=== PATIENT | male | born 1975 | race Hispanic/Latino ===

== ENCOUNTER 2020-04-13 11:43 | Emergency (ER) | payer OTHER, MEDICAID, SELFPAY ==
[2020-04-13 12:04] VITALS: BP 143/91; PULSE 84; RESP 11; TEMP 37.3; O2SAT 98; BMI 23.7
[2020-04-13 12:17] LABS: Add Manual Diff / Slide Review NO; Basophils Absolute Auto 0 /uL (0-100); Basophils Percent Auto 0.8 % (0-2); Eosinophils Absolute Auto 200 /uL (0-450); Hematocrit 42.1 % (41-53); Hemoglobin 14.6 g/dL (13.5-17.5); Lymphocytes Absolute Auto 1500 /uL (1100-4500); Lymphocytes Percent Auto 25.3 % (25-40); Mean Corpuscular HGB Conc 34.6 % (30-36); Mean Corpuscular Hemoglobin 31.2 PG (26-34); Monocytes Absolute Auto 600 /uL (0-900); Monocytes Percent Auto 9.2 % (3-14); Neutrophils Absolute Auto 3800 /uL (1500-7000); Neutrophils Percent Auto 61.7 % (50-75); Platelet Count 304 X10^3/uL (150-400); Red Blood Cell Count 4.68 X10^6/uL (4.5-5.9); White Blood Cell Count 6.1 X10^3/uL (4.5-11.0)
[2020-04-13 12:19] VITALS: PULSE 89; RESP 15; O2SAT 97
[2020-04-13 12:22] LABS: Alanine Aminotransferase 28 IU/L (<50); Albumin Globulin Ratio 1.4 (1.0-2.8); Alkaline Phosphatase 59 U/L (38-126); Aspartate Aminotransferase 31 IU/L (17-59); BUN Creatinine Ratio 16.7 (6-22); Bilirubin Total 0.7 mg/dL (0.2-1.3); Blood Urea Nitrogen 15 mg/dL (9-20); Calcium 9.9 mg/dL (8.4-10.2); Carbon Dioxide 28 mmol/L (22-32); Chloride 102 mmol/L (98-107); Estimated Glomerular Filt Rate > 60.0 mL/min (>60); Globulin 3.6 g/dL (1.7-4.1); Glucose 103 mg/dL (70-100); HEMOLYSIS < 15 (0-50); Potassium 3.8 mmol/L (3.4-5.1); Sodium 138 mmol/L (137-145); Total Protein 8.6 g/dL (6.3-8.2)
--- NOTE | 2020-04-13 12:28 | PC.NURSE ---
patient stated that he cannot close his lips all the way so water runs out. He does not have a swallow deficit.
[2020-04-13 12:30] VITALS: BP 116/76; PULSE 84; RESP 11; O2SAT 98
--- NOTE | 2020-04-13 14:12 | DI.CT.S_ITS ---
PROCEDURE: CT ANGIO HEAD AND NECK INDICATIONS: ? dissection or avscular disruption after chiropractic adjus TECHNIQUE: Pre-contrast 4.5 mm thick sections acquired from the foramen magnum to the vertex. After the administration of intravenous contrast, 1 mm thick sections acquired from the aortic arch through the [place] of [place]. Post-contrast 4.5 mm thick sections then re-acquired from the foramen magnum to the vertex. 3-dimensional zilkzan-kfjywomyv-lbnqqydufm (MIP) and/or volume rendering reformats were acquired of the central intracranial vasculature and neck separately. COMPARISON: None. FINDINGS: Image quality: Excellent. BRAIN: CSF spaces: Ventricles are normal in size and shape. Basal cisterns are patent. No extra-axial fluid collections. Brain: No midline shift. No intracranial bleeds or masses. Hinojosa-white matter interface appears intact. Skull and face: Calvarium and facial bones appear intact, without suspicious lesions. Orbits appear normal. Sinuses: Sinuses and mastoids are clear. HEAD CT ANGIOGRAPHY: Anterior circulation: Intracranial internal carotid arteries are normal in size and flow. The flow within the paired anterior cerebral arteries is normal and symmetric. The flow within the middle cerebral arteries is normal and symmetric. The anterior communicating artery is seen. No aneurysms are seen. Posterior circulation: Visualized portions of the vertebral arteries demonstrate normal caliber, and join to form a normal appearing basilar artery. Flow within the posterior cerebral arteries is normal and symmetric. No aneurysms are seen. NECK CT ANGIOGRAPHY: Carotid system: The great vessels demonstrate a conventional anatomy as they arise from the aortic arch. The origins of the common carotid arteries appear patent. The common carotid arteries demonstrate normal caliber and courses. The bifurcation regions are both widely patent. The internal carotid arteries demonstrate normal calibers and courses. Posterior circulation: The origins of the vertebral arteries both appear widely patent. The more superior extracranial portions of both vertebral arteries also demonstrate normal courses and calibers. They join to form a normal appearing basilar artery. Soft tissues: The lungs are clear. There are enlarged hilar lymph nodes bilaterally an enlarged subcarinal lymph nodes which are incompletely characterized on this limited view of the chest. No cervical adenopathy. Bones: No suspicious bony lesions. Visualized cervical spine appears normally aligned. IMPRESSION: 1. Cervical or intracranial vascular injury, stenosis, aneurysm, or occlusion. 2. Bilateral hilar and mediastinal adenopathy which is incompletely characterized on this limited view of the chest. This is an abnormal finding and raises the suspicion for a hematologic neoplasm. Dedicated CT of the chest abdomen and pelvis with contrast recommended to further characterize findings. These findings were discussed with Dr. Marcus ASHLEY at 3:07 p.m. On April 13, 2020. Any quantitative measurements of stenosis were performed using NASCET criteria. Dictated by: Elena Prescott M.D. on 04/13/2020 at 13:57 Approved by: Elena Prescott M.D. on 04/13/2020 at 14:09
--- NOTE | 2020-04-13 15:37 | DI.CT.S_ITS ---
PROCEDURE: CT CHEST ABD PEL W CON INDICATIONS: Bilateral hilar and mediastinal adenopathy TECHNIQUE: After the administration of oral and intravenous contrast, 5 mm thick sections acquired from the lung apices to the symphysis. 5 mm coronal and sagittal reformats were performed, with additional 7 mm coronal MIP reformats through the lungs. For radiation dose reduction, the following was used: automated exposure control, adjustment of mA and/or kV according to patient size. COMPARISON: [facility], CT, CT ANGIO HEAD AND NECK, 04/13/2020, 14:29. FINDINGS: Image quality: Excellent. CHEST: Lungs and pleura: No acute airspace opacities. There is minimal subpleural thickening seen involving the right posterior costophrenic angle, as on series 3, image 281 that measures 8 mm. No pleural effusions or pneumothorax. Central and peripheral airways appear patent and normal in caliber. Mediastinum: Enlarged mediastinal lymph nodes are seen, including a precarinal lymph node that measures 19 by 23 mm. Enlarged left perihilar lymph nodes are seen that measure up to 17 x 15 mm. Enlarged right perihilar lymph nodes are seen that measure 12 x 23 mm, when measured together. Heart size is normal. No pericardial effusion. Thoracic aorta and central pulmonary arteries are normal in size. Esophagus is normal in caliber. No hiatal hernia. Chest wall: No axillary or supraclavicular adenopathy by size criteria. Thyroid gland demonstrates no significant abnormality. ABDOMEN: Solid organs: Liver is normal in size and enhancement. Gallbladder demonstrates no significant abnormality. Biliary system is non dilated. Pancreas enhances normally. Spleen is normal in size and enhancement. No adrenal nodules. Kidneys demonstrate normal size and enhancement, without hydronephrosis. Excreting contrast is seen within the renal collecting systems and within the ureters. Peritoneum and bowel: Bowel loops demonstrate normal wall thickness and caliber. No free fluid or air. Nodes and vessels: No retroperitoneal or mesenteric adenopathy by size criteria. Aorta and inferior vena cava are normal in size. Miscellaneous: No ventral hernias. PELVIS: Genitourinary: Bladder wall thickness is normal. Miscellaneous: No inguinal hernias or adenopathy. Bones: No suspicious bony lesions. An L4 vertebral body hemangioma is seen, as on series 5, image 39 and on series 4, image 33. No vertebral body compression fractures. IMPRESSION: Enlarged mediastinal and perihilar lymph nodes are again seen. Please consider short-term follow-up chest CT in 4-6 weeks to assure interval improvement. No other enlarged lymph nodes are seen elsewhere. No masses are seen. A small amount of right posterior costophrenic angle subpleural thickening is seen, which most likely represents a subpleural lymph node or scarring in a patient of this age. Incidental note is made of: L4 vertebral body hemangioma. Dictated by: Randy Olivera M.D. on 04/13/2020 at 16:12 Approved by: Randy Olievra M.D. on 04/13/2020 at 16:18
--- NOTE | 2020-04-13 15:40 | ED_ITS ---
HPI - Neuro Symptoms/Deficit General Chief Complaint: Neuro Symptoms/Deficit Stated Complaint: Facial Paralysis and Ear Pain, Left Side Time Seen by Provider: 04/13/20 11:58 Source: patient Mode of arrival: Ambulatory Limitations: physical limitation History of Present Illness HPI Narrative: 44-year-old gentleman with no prior past medical history presents with complaints of left facial droop for 3 days. The symptoms were noted 2 days after a chiropractic adjustment and he is worried that the 2 May be related. He also complains of a pulsatile nodule behind his left ear worse when laying flat that is been notable for the past 3-4 days. He has no sensory loss over the face, he does complain of slightly dry eye and attributes that to the fact that his eyelid is not closing completely. He states that he has been having trouble eating and drinking because the left side of his mouth is weak. He denies fevers, night sweats, weight loss, adenopathy, increasing fatigue or weakness On Anticoagulants: No Related Data Previous Rx's Medication Instructions Recorded prednisone 60 mg PO DAILY 5 Days #15 tab 04/13/20 valacyclovir 1,000 mg PO BID #14 tab 04/13/20 erythromycin 0.5 inch EYE-LEFT BEDTIME #50 gram 04/14/20 Allergies Allergy/AdvReac Type Severity Reaction Status Date / Time No Known Drug Allergies Allergy Verified 10/05/19 09:57 Review of Systems Review of Systems Narrative: Pertinent positive and negative findings as per HPI Remainder of review of systems is otherwise unremarkable for Constitutional: Fevers, chills, weakness, denies any weakness or night sweats ENT: No sore throat, neck pain, ear pain, no complaints of adenopathy or neck or axillary masses CV: Chest pain, palpitations, dyspnea on exertion Respiratory: Cough, wheeze, dyspnea GI: Nausea, vomiting, diarrhea, change in bowel habits, black or bloody stools : Dysuria, hematuria, flank pain MS: Muscle weakness, numbness, joint swelling or warmth Skin: Rashes, nonhealing lesions Psych: Depression, anxiety, suicidal ideation Endocrine: Fatigue, heat or cold intolerance, very dry skin Heme: Easy bruising or bleeding Patient History Medical History Asthma (Chronic) Hearing loss (Chronic) History of recurrent ear infection (Inactive) Family History Father Diabetes mellitus Mother Breast cancer genetic susceptibility Family/Other Autism Social History Smoking Status: Never smoker Smoking Status: Never smoker alcohol intake frequency: 0-2 drinks per day Alcohol type: beer and wine Substance Use Type: does not use Exam Narrative Exam Narrative: General: Healthy appearing, in no acute distress. Able to give a complete and coherent history. Well-nourished well-developed HEENT: Moist mucous membranes, normal sclera with reactive pupils, left eyelid does not close completely, left-sided facial droop and minimal movement of left forehead. Over the mastoid process area on the left side he complains of severe pain with pulsatile sensation when he is lying flat and I do not appreciate any physical changes at this spot, no obvious adenopathy and no skin rashes Neck: No JVD, supple, no anterior or posterior cervical adenopathy, no supraclavicular or axillary adenopathy Respiratory: Lungs are clear to auscultation, no wheezing no rales no rhonchi. Full and symmetrical air movement Cardiac: Regular rate and rhythm no murmurs no bruits Abdomen: Soft nontender good bowel tones, no flank pain. No organomegaly, no inguinal adenopathy Skin: Warm and dry, no rashes Neurologic: Grossly neurologically intact with no obvious asymmetries or abnormalities Extremities: No trauma, well perfused Psych: Cooperative, appropriate insight and affect Initial Vital Signs Initial Vital Signs: Vital Signs Temperature 99.1 F 04/13/20 12:04 Pulse Rate 84 04/13/20 12:04 Respiratory Rate 11 L 04/13/20 12:04 Blood Pressure 143/91 H 04/13/20 12:04 Pulse Oximetry 98 04/13/20 12:04 Course Orders Ordered: ED Orders 04/13/20 12:01 Complete Blood Count AUTO DIFF Stat Comprehensive Metabolic Panel Stat 04/13/20 14:12 CT angio head and neck Stat 04/13/20 15:37 CT chest abd pel w con Stat Vital Signs Vital signs: Vital Signs - 8 hr 04/13/20 12:04 04/13/20 12:19 04/13/20 12:30 Temperature 99.1 F Pulse Rate 84 89 84 Respiratory Rate 11 L 15 11 L Blood Pressure 143/91 H 116/76 Pulse Oximetry 98 97 98 MDM - Neuro Symptoms/Deficit Lab Data Attestation: I reviewed the patient's lab results. Result diagrams: 04/13/20 12:01 04/13/20 12:01 Labs: Lab Results 04/13/20 04/13/20 Range/Units 12: 12:01 WBC 6.1 (4.5-11.0) X10^3/uL RBC 4.68 (4.5-5.9) X10^6/uL Hgb 14.6 (13.5-17.5) g/dL Hct 42.1 (41-53) % MCV 90.0 (80-100) fL MCH 31.2 (26-34) PG MCHC 34.6 (30-36) % RDW 13.0 (11.6-14.8) % Plt Count 304 (150-400) X10^3/uL Neut % (Auto) 61.7 (50-75) % Lymph % (Auto) 25.3 (25-40) % [place] % (Auto) 9.2 (3-14) % Eos % (Auto) 3.0 (2-4) % Baso % (Auto) 0.8 (0-2) % Neut # (Auto) 3800 (4440-7396) /uL Lymph # (Auto) 1500 (1144-4543) /uL [place] # (Auto) 600 (0-900) /uL Eos # (Auto) 200 (0-450) /uL Baso # (Auto) 0 (0-100) /uL Sodium 138 (137-145) mmol/L Potassium 3.8 (3.4-5.1) mmol/L Chloride 102 (98-107) mmol/L Carbon Dioxide 28 (22-32) mmol/L BUN 15 (9-20) mg/dL Creatinine 0.90 (0.66-1.25) mg/dL Estimated GFR > 60.0 (>60) mL/min BUN/Creatinine Ratio 16.7 (6-22) Glucose 103 H (70-100) mg/dL Calcium 9.9 (8.4-10.2) mg/dL Total Bilirubin 0.7 (0.2-1.3) mg/dL AST 31 (17-59) IU/L ALT 28 (<50) IU/L Alkaline Phosphatase 59 (38-126) U/L Total Protein 8.6 H (6.3-8.2) g/dL Albumin 5.0 (3.5-5.0) g/dL Globulin 3.6 (1.7-4.1) g/dL Albumin/Globulin Ratio 1.4 (1.0-2.8) Imaging Data CTA head and neck: Radiologist's Impression: IMPRESSION: 1. Cervical or intracranial vascular injury, stenosis, aneurysm, or occlusion. 2. Bilateral hilar and mediastinal adenopathy which is incompletely characterized on this limited view of the chest. This is an abnormal finding and raises the suspicion for a hematologic neoplasm. Dedicated CT of the chest abdomen and pelvis with contrast recommended to further characterize findings. These findings were discussed with Dr. Marcus ASHLEY at 3:07 p.m. On April 13, 2020. Any quantitative measurements of stenosis were performed using NASCET criteria. Dictated by: Elena Prescott M.D. on 04/13/2020 at 13:57 CT Chest abdomen pelvis: Radiologist's Impression: Mediastinum: Enlarged mediastinal lymph nodes are seen, including a precarinal lymph node that measures 19 by 23 mm. Enlarged left perihilar lymph nodes are seen that measure up to 17 x 15 mm. Enlarged right perihilar lymph nodes are seen that measure 12 x 23 mm, when measured together. ECG Data Attestation: I personally reviewed and interpreted this ECG as follows: Interpretation: Sinus rhythm with PVC Rate of84 And normal axis, normal intervals No acute ischemic changes MDM Narrative Medical decision making narrative: 44-year-old gentleman with no prior medical history presents with left-sided facial droop that is been present for 3 days. He also complains of a pulsatile painful nodule just posterior to the left ear noticeable when he lays flat. He did have a chiropractic adjustment including neck manipulation 2 days prior to the left-sided facial droop. In consultation with Radiology there is a extraordinarily low but still real possibility that he could have some type of vessel disruption that would be exacerbating his symptoms. A CT a the head and neck is ordered. It reveals no evidence of vascular abnormalities but he does have significant mediastinal lymphadenopathy as a new finding. Again, in discussion with radiology and given difficulties in accessing Physicians during this time of Covid we chose to proceed with a CT of the chest abdomen and pelvis with IV and oral contrast. Results from this do indicate enlarged mediastinal nodes that very likely should be biopsied for diagnostic purposes. Cbc is unremarkable and there is no other masses or solid tumors appreciated on CT scanning Care is reviewed with Dr. Bell, oncology. Contact information is taken and his office will contact the patient on Wednesday for follow-up visit and arranging additional workup with bronchoscopy and lymph node biopsy. Patient is safe for home discharge Discharge Plan Departure Patient Disposition: Home Clinical Impression: Borrego's palsy, Adenopathy, hilar Discharge Date/Time: 04/13/20 18:58 Instructions: DI for Dugger Palsy Activity Restrictions/Additional Instructions: Thank you for coming in today, it has been quite a day. You do have Borrego's palsy. This will improve however it is quite annoying for a number of weeks. Please complete the 5 day course of prednisone and a 7 day course of acyclovir, evidence seems to suggest that this combination helps shorten the course slightly. When your eyelid does not close all the way, your eye itself dries out. Please use the eye ointment at night and tape your eyelid shot to protect your eye. Using krrj-nzh-jlzybvt saline eyedrops for moisturizing during the day is also helpful While we work confirming that you did not have any vascular injury after a chiropractic manipulation that could have contributed to her Borrego's palsy we incidentally found significantly swollen lymph nodes in and around the middle portion of your body. This is quite concerning for a cancer and needs further workup. The additional CT scans we did of your chest abdomen and pelvis did not show any solid tumors and this is great news. I spoke to Dr. Bell, oncologist, his office will call you on Wednesday to schedule an appointment with oncology to work at the next appropriate steps. You will need a biopsy of 1 of these lymph nodes so we can get to an actual diagnosis. I wish you the very best Prescriptions: New prednisone 20 mg tablet 60 mg PO DAILY 5 Days Qty: 15 RF: 0 valacyclovir 1 gram tablet 1,000 mg PO BID Qty: 14 RF: 0 erythromycin 5 mg/gram (0.5 %) ointment 0.5 inch EYE-LEFT BEDTIME Qty: 50 RF: 0 Referrals: Chris Perry MD [Physician] - Obi Nelson MD [Primary Care Provider] -
[2020-04-13 18:50] VITALS: BP 136/78; PULSE 96; RESP 18; TEMP 37.4; O2SAT 99
== END 2020-04-13 18:58 | disposition home or self-care (01) ==
PROVIDERS: Emergency Provider Emergency Medicine; PCP Internal Medicine
DX: G51.0 Bell's palsy (principal); R59.0 Localized enlarged lymph nodes
CPT/HCPCS: 36415; 70496; 70498; 71260; 74177; 80053; 85025; 93005; 99284; 99285; Q9967

== ENCOUNTER → 2020-06-18 11:47 | Outpatient (CLI) | payer OTHER, MEDICAID, SELFPAY ==
--- NOTE | 2020-06-18 | DI.CT.S_ITS ---
PROCEDURE: CT CHEST W CON INDICATIONS: Borrego's palsy, evaluate for adenopathy. TECHNIQUE: After the administration of intravenous contrast, 5 mm thick sections acquired from the pulmonary apices to the posterior costophrenic angles. 1 mm axial lung, 5 mm thick coronal and sagittal reformats and 7 mm axial MIP were acquired. For radiation dose reduction, the following was used: automated exposure control, adjustment of mA and/or kV according to patient size. COMPARISON: [facility], CT, CT CHEST ABD PEL W CON, 04/13/2020, 16:51. [facility], CT, CT ANGIO HEAD AND NECK, 04/13/2020, 14:29. FINDINGS: Image quality: Excellent. Lungs and pleura: No acute air space opacities. No pleural effusions or pneumothorax. Central and peripheral airways are patent and normal in caliber. Mediastinum: Heart size is normal. No pericardial effusion. No change in mild prominence of the mediastinal and hilar lymph nodes by size criteria. Thoracic aorta and central pulmonary arteries are normal in size. Esophagus is normal in caliber. No hiatal hernia. Bones and chest wall: No suspicious bony lesions. No vertebral body compression fractures. No axillary or supraclavicular adenopathy by size criteria. Thyroid gland appears normal . Abdomen: Visualized upper abdominal solid organs appear normal. Upper abdominal bowel loops are normal in caliber. IMPRESSION: The mediastinal and hilar lymph nodes were identified as mildly prominent in size on comparison CT scanning 04/13/20. This pattern has not changed, and is considered most likely reactive in etiology. No appreciable improvement or worsening has developed and the appearance is a just above the upper limits of normal. Dictated by: Chapo Larkin M.D. on 06/18/2020 at 13:42 Approved by: Chapo Larkin M.D. on 06/18/2020 at 13:47
== END ==
PROVIDERS: PCP Internal Medicine; Referring Provider Internal Medicine Hematology & Oncology; Visit Provider Internal Medicine Hematology & Oncology
DX: G51.0 Bell's palsy (principal); R59.0 Localized enlarged lymph nodes
CPT/HCPCS: 71260; Q9967

== ENCOUNTER → 2022-07-15 11:55 | Outpatient (CLI) | payer OTHER, MEDICAID, SELFPAY ==
[2022-07-15 12:19] LABS: Add Manual Diff / Slide Review NO; Basophils Absolute Auto 100 /uL (0-100); Eosinophils Absolute Auto 200 /uL (0-450); Eosinophils Percent Auto 3.7 % (2-4); Hematocrit 40.5 % (41-53); Hemoglobin 13.6 g/dL (13.5-17.5); Lymphocytes Absolute Auto 1200 /uL (1100-4500); Lymphocytes Percent Auto 20.2 % (25-40); Mean Corpuscular HGB Conc 33.5 % (30-36); Mean Corpuscular Hemoglobin 28.5 PG (26-34); Mean Corpuscular Volume 85.1 fL (80-100); Monocytes Absolute Auto 600 /uL (0-900); Monocytes Percent Auto 10.2 % (3-14); Neutrophils Absolute Auto 3900 /uL (1500-7000); Neutrophils Percent Auto 64.9 % (50-75); Platelet Count 308 X10^3/uL (150-400); Red Blood Cell Count 4.76 X10^6/uL (4.5-5.9); Red Cell Distribution Width 14.5 % (11.6-14.8); White Blood Cell Count 5.9 X10^3/uL (4.5-11.0)
[2022-07-15 12:44] LABS: Alanine Aminotransferase 30 IU/L (<50); Albumin 4.3 g/dL (3.5-5.0); Albumin Globulin Ratio 1.2 (1.0-2.8); Alkaline Phosphatase 83 U/L (38-126); Aspartate Aminotransferase 27 IU/L (17-59); BUN Creatinine Ratio 18.4 (6-22); Bilirubin Total 0.7 mg/dL (0.2-1.3); Blood Urea Nitrogen 21 mg/dL (9-20); C-Reactive Protein Quant < 0.5 mg/dL (<1.0); Calcium 12.2 mg/dL (8.4-10.2); Carbon Dioxide 28 mmol/L (22-32); Chloride 98 mmol/L (98-107); Cholesterol 265 mg/dL (140-199); Estimated Glomerular Filt Rate > 60 mL/min (>60); Globulin 3.6 g/dL (1.7-4.1); Glucose 92 mg/dL (70-100); HDL Cholesterol 29 mg/dL (40-60); HEMOLYSIS < 15 (0-50); LDL Cholesterol Calculated 196 mg/dL (<100); Potassium 4.1 mmol/L (3.4-5.1); Sodium 137 mmol/L (137-145); Total Protein 7.9 g/dL (6.3-8.2); Triglycerides 199 mg/dL (35-150)
== END ==
PROVIDERS: PCP Internal Medicine; Referring Provider Internal Medicine; Visit Provider Internal Medicine
DX: R59.1 Generalized enlarged lymph nodes (principal); Z13.220 Encounter for screening for lipoid disorders; Z13.6 Encounter for screening for cardiovascular disorders
CPT/HCPCS: 36415; 80053; 80061; 85025; 86140